=== PATIENT | male | born 1935 | race Caucasian/White ===

== ENCOUNTER 2019-12-16 11:02 | Inpatient (IN) ==
[2019-12-16] MEDS ORDERED: NS 1,000 ML IV ONE (11:17)
--- NOTE | 2019-12-16 11:45 | Diag Imaging Result Doc PS360 ---
EXAM: CHEST-1 VIEW INDICATION: ams TECHNIQUE: One view COMPARISON: 06/04/2018 FINDINGS: Inspiration is suboptimal. The central vasculature is perhaps mildly increased suggesting mild pulmonary venous congestion. The lungs are grossly clear, otherwise. There is stable elevation of the right hemidiaphragm. There is no discrete pleural fluid collection or pneumothorax. There are stable CABG changes and there is cardiomegaly. IMPRESSION: Cardiomegaly and suggestion of mild pulmonary venous congestion. Electronically signed by Tanner Rico 12/16/2019 11:43 AM
--- NOTE | 2019-12-16 11:47 | Diag Imaging Result Doc PS360 ---
EXAM: CT HEAD W/O CONTRAST INDICATION: ams TECHNIQUE: This exam was performed using automated exposure control, adjustment of mA or kV according to patient size, and/or use of iterative reconstruction technique. COMPARISON: 06/04/2018 FINDINGS: There is stable age-appropriate diffuse brain atrophy. There is no definite acute infarct given the limited sensitivity of CT versus MRI. There is no discrete intracranial mass, mass effect, or intracranial hemorrhage. There are stable bilateral maxillary sinus mucus retention cyst. The surrounding soft tissues and bony structures are essentially unremarkable, otherwise. IMPRESSION: Stable mild brain atrophy. No evidence of acute intracranial pathology by CT. Electronically signed by Tanner Rico 12/16/2019 11:45 AM
[2019-12-16 12:22] LABS: URINE SOURCE CATH
[2019-12-16] MEDS ORDERED: ROCEPHIN 1 GM in NS 50 ML IV ONE (12:27)
[2019-12-16 12:28] LABS: BILIRUBIN URINE NEGATIVE (NEGATIVE); BLOOD URINE MODERATE (NEGATIVE); COLOR YELLOW; GLUCOSE URINE NEGATIVE (NEGATIVE); KETONE URINE TRACE mg/dL (NEGATIVE); LEUKOCYTES URINE LARGE (NEGATIVE); NITRITE URINE POSITIVE (NEGATIVE); PH URINE 8.5; PROTEIN URINE 300 mg/dL (NEGATIVE); TURBIDITY URINE TURBID (CLEAR); UROBILINOGEN URINE NORMAL (NORMAL)
[2019-12-16] MEDS ORDERED: POLYTRIM OPH SOLUTION RIGHT EYE ONE (12:28)
[2019-12-16 12:34] LABS: UR EPITHELIAL CELLS <10 /HPF (<10); URINE BACTERIA 4+ /HPF; URINE CRYSTALS TRIPLE PHOS PRESENT; URINE RBC TNTC /HPF (<10); URINE WBC TNTC /HPF (<10); URINE YEAST NONE SEEN
[2019-12-16 15:02] LABS: INR 1.18; PROTIME 15.2 Seconds (11.0-16.0)
[2019-12-16 15:03] LABS: PTT 34.5 Seconds (22.3-41.8)
[2019-12-16 15:08] LABS: BASO# 0.01 X1000 (0.0-0.2); BASO% 0.1 % (0.0-0.8); EOS# 0.01 X1000 (0.0-0.7); EOS% 0.1 % (0.0-10.0); HEMATOCRIT 40.3 % (42.0-52.0); IMM GRAN# 0.02 X1000 (0.0-0.04); IMM GRAN% 0.2 % (0.0-0.5); LYMPH# 0.89 X1000 (1.2-3.4); LYMPH% 7.6 % (20.5-51.1); MCH 29.2 PG (27-31); MCHC 32.3 g/dL (33-37); MCV 90.6 FL (81-99); MONO# 0.58 X1000 (0.11-0.59); MONO% 4.9 % (1.7-9.3); MPV 12.8 FL (7.4-10.4); NEUT# 10.22 X1000 (1.4-6.5); NEUT% 87.1 % (42.2-75.2); PLT 116 X1000 (130-400); RBC 4.45 XMIL (4.7-6.1); RDW 13.7 % (11.5-14.5); WBC 11.73 X1000 (4.8-10.8)
[2019-12-16 15:17] LABS: ALB/GLOB RATIO 2.1; ALBUMIN 4.2 g/dL (3.5-5.0); CREATININE 1.5 mg/dL (0.7-1.2); DIRECT BILIRUBIN 0.2 mg/dL (0.00-0.20); POTASSIUM 4.1 mmol/L (3.5-5.1); TOTAL BILIRUBIN 0.63 mg/dL (0.20-1.00); TOTAL PROTEIN 6.2 g/dL (6.3-8.3)
--- NOTE | 2019-12-16 16:42 | HISTORY AND PHYSICAL ---
PRIMARY CARE PHYSICIAN: Dr. Denise Montesinos. CHIEF COMPLAINT: Was found outside sitting in a truck with nothing but wet socks, full brief, and a thin white T-shirt on by his neighbor who called EMS. HISTORY OF PRESENTING ILLNESS: This is an 84-year-old male who presents to [facility] via EMS after he was seen by his neighbor sitting in a truck that did not run. When the neighbor went over he had on nothing but wet socks, a full brief, and a thin white T-shirt. He had apparently also been riding around in his golf cart most of the night. It is noted that he was hallucinating, wanting to speak to the [employer] man that was not there, and was agitated, but cooperative with EMS. It is noted that his is currently in rehab at [facility], so he has been at home alone. He is alert and oriented to person only. His workup showed a urinalysis with positive nitrites, large leukocytes, 4+ bacteria. CT of the head showed stable mild brain atrophy, but no evidence of acute intracranial pathology. Chest x-ray showed cardiomegaly and suggestion of mild pulmonary venous congestion. So he will be admitted for further evaluation and treatment. PAST MEDICAL HISTORY: Hypertension, hyperlipidemia, diabetes type 2, a DVT, and chronic kidney disease stage III. PAST SURGICAL HISTORY: CABG. FAMILY HISTORY: Reviewed and noncontributory. SOCIAL HISTORY: He was at home alone due to his being in rehabilitation, but normally lives with his spouse. Denies any tobacco, alcohol, or illicit drug use. ALLERGIES: He has no known drug allergies. HOME MEDICATIONS: A current list will need to be obtained, reconciled, reviewed, and restarted as appropriate. We will place an order for nursing to update and confirm home medications. LABORATORY DATA: Showed a white blood cell count of 11.73, hemoglobin 13, hematocrit 40.3, platelets 116,000. PT and INR of 15.2 and 1.18. Sodium 141, potassium 4.1, chloride 103, CO2 of 26, BUN of 39, creatinine 1.5, glucose 126. Cardiac enzyme was negative. Plasma lactate showed 1. Urinalysis showed positive nitrites, large leukocytes, 4+ bacteria. Head CT showed stable mild brain atrophy and no evidence of acute intracranial pathology. Chest x-ray showed cardiomegaly and suggestion of mild pulmonary venous congestion. REVIEW OF SYSTEMS: Unable to obtain from the patient due to his confusion. PHYSICAL EXAMINATION: VITAL SIGNS: On arrival he had a temperature of 97.9 degrees, pulse 60, respirations 20, blood pressure 168/58, saturating 98% on room air. GENERAL: This is an 84-year-old male lying in the bed unable to answer all questions appropriately. He is alert and oriented to person only. HEENMT: Normocephalic, atraumatic. Normal ENT inspection. Oropharynx and nares are clear. Eyes: His right eye was noted to have some crusting, but pupils are equal, round, and reactive to light. Extraocular movements are intact. NECK: Normal inspection. Normal range of motion. LUNGS: Clear to auscultation bilaterally with equal lung expansion and chest wall movement. HEART: Regular rate and rhythm. No murmurs, rubs, or gallops. He does have 3+ edema to his right lower extremity and 1+ to his left lower extremity. ABDOMEN: Soft, nontender, nondistended. Bowel sounds are present x4 quadrants. MUSCULOSKELETAL: He had 3/5 strength x4 extremities. NEUROLOGICAL: Cranial nerves II through XII appear grossly intact. ASSESSMENT: 1. Altered mental status. 2. Urinary tract infection. 3. Diabetes type 2. 4. Hypertension. 5. Chronic kidney disease stage III. PLAN: He will be admitted to the medical unit. Placed on telemetry. Placed on a diabetic diet. Pattern blood sugars with sliding scale insulin. We will do some gentle hydration of normal saline at [address] on Rocephin 1 gram IV q. 24. Urine culture is pending. We will need to update and confirm home medications. Recheck a CBC and BMP in the a.m. and a PT with INR. Further orders after seen by attending. Dictated by TRIXIE Ayoub for Ihsan Sanches MD cc: TRIXIE Ayoub MD Lindsay Smith
--- NOTE | 2019-12-16 17:30 | PROGRESS NOTE ---
DATE: 12/16/2019 Briefly, this is an 84-year-old gentleman who was found confused in his truck in his underwear and socks wet. He is disheveled. He is confused as to where he is. He has been hallucinating. He is describing his was in the half-way, so he has not been really able to take care of himself apparently. He does have a UTI. He does kind of smell of urine like he has been incontinent. There is nothing focal to suggest stroke. He has a minimal white count, but he has gross pyuria. He has a nonfocal examination. Nonpitting edema. We will admit him for hydration and see how he does. Treat his UTI and see how he does. cc: Ihsan Sanches MD
[2019-12-16] MEDS ORDERED: TYLENOL PO PRN (18:11)
[2019-12-16] MEDS ORDERED: ZOFRAN IV PRN (18:11)
[2019-12-16] MEDS ORDERED: LOVENOX SUBQ SCH (18:11)
[2019-12-16] MEDS: NS 1,000 ML IV SCH (19:06)
[2019-12-16] MEDS: HUMALOG SUBQ SCH (20:49)
--- NOTE | 2019-12-16 22:07 | PROVIDER DOCUMENTATION ---
This chart was entered by Nini Rowan Scribe, acting as scribe for Gama Holland MD. HPI-General Adult - General Stated Complaint: AMS Time Seen by Provider: 12/16/19 11:09 Source: patient, EMS ([facility]) Allergies/Adverse Reactions: Patient Allergies Allergy/AdvReac Type Severity Reaction Status Date / Time No Known Allergies Allergy Verified 12/16/19 12:04 Home Medications: Home Medication List Medication Instructions Recorded Confirmed Last Taken Type Furosemide [Lasix] 20 mg PO BID 08/07/14 12/16/19 12/15/19 21:00 History Metoprolol Succinate E.r. [Toprol 50 mg PO DAILY 08/07/14 12/16/19 12/15/19 09:00 History Xl] Cyanocobalamin/Folic AC/Vit B6 1 each PO BID 11/19/14 12/16/19 12/15/19 21:00 History [Folbee Tablet] Glimepiride 2 mg PO BID 11/19/14 12/16/19 12/15/19 21:00 History Insulin Glargine,Hum.rec.anlog 10 unit SQ HS 11/19/14 02/10/18 12/15/19 21:00 History [Lantus Solostar] Insulin Glargine,Hum.rec.anlog 14 unit SQ QAM 11/19/14 12/16/19 12/15/19 08:00 History [Lantus Solostar] Potassium Chloride 10 meq PO DAILY 07/06/16 12/16/19 12/15/19 08:00 History ATORVAstatin [Lipitor] 40 mg PO QHS #90 tab 02/12/18 12/15/19 21:00 Rx Amlodipine [Norvasc] 5 mg PO BID #60 tab 02/12/18 12/16/19 12/15/19 21:00 Rx Aspirin 81 mg PO DAILY chewtab 02/12/18 12/15/19 08:00 Rx Apixaban [Eliquis] 2.5 mg PO BID 12/16/19 12/16/19 12/15/19 21:00 History Carvedilol [Coreg] 3.125 mg PO BID 12/16/19 12/16/19 12/15/19 21:00 History Quetiapine Fumarate 12.5 mg PO HS 12/16/19 12/16/19 12/15/19 21:00 History Sertraline HCl 100 mg PO DAILY 12/16/19 12/16/19 12/15/19 08:00 History - History of Present Illness -Gen Adult Nature of Presenting Problems: 84 yowm presents to the ed via ems ([facility]) after being seen by his neighbor this am sitting in a truck that doesn't run. per ems pt had been outside most of the night in a golf cart riding around and then found in the truck this am in nothing but wet socks, soiled briefs and a thin white tshirt. ems reports when they aos pt was hallucinating wanting to go speak to the [employer] man that was not there. pt was agitated but cooperative with ems.pt has a but she is currently in rehab so pt has been living alone. pt has hx of DM and CVA from ems recoords. Location of Pain/Injury: reports: none Pain Radiation: reports: no radiation Quality of Pain: reports: none Onset/Duration: reports: unsure (possible last night per ems) Timing: reports: still present Context/Activities at Onset: reports: light activity Modifying Factors: improves with: nothing Associated Symptoms: reports: genitourinary problems (incontinence of urine and feces) Similar Symptoms Previously?: No Recently seen or treated by another doctor?: No Review of Systems - Adult - REVIEW OF SYSTEMS - ADULT ROS:: limited per condition Constitutional: reports: see HPI, chills. denies: fever Eyes: reports: no symptoms reported Ears, Nose, Mouth & Throat: reports: no symptoms reported Cardiovascular: denies: chest pain, palpitations Respiratory: denies: shortness of breath, wheezing Gastrointestinal: denies: abdominal pain, constipation, diarrhea, nausea, vomiting Genitourinary: reports: see HPI, incontinence Musculoskeletal: reports: no symptoms reported Integumentary: reports: no symptoms reported Neurological: reports: see HPI, other (confusion). denies: dizziness/vertigo, headache/migraines Psychiatric: reports: no symptoms reported Endocrine: reports: no symptoms reported Hematologic/Lymphatic: reports: no symptoms reported Allergic/Immunologic: reports: no symptoms reported All Other Systems: Reviewed and Negative Past History - Adult - PAST MEDICAL HISTORY-ADULT Review of Records: reports: Old Records Reviewed, Nursing Assessment Review, Medications Reviewed, Social history reviewed & non-contributory. Major Childhood Illnesses: reports: denies history Cardiovascular: reports: HTN, hyperlipidemia Respiratory: reports: denies history Gastrointestinal: reports: denies history Genitourinary: reports: denies history Musculoskeletal: reports: denies history Neurological: reports: denies history Psychiatric: reports: denies history Endocrine/Immune: reports: Diabetes Diabetes Type: Type 2 Diabetes controlled by:: PO Meds Other Conditions: reports: denies history, other (dvt) - PRIOR SURGERIES/PROCEDURES Surgical/Procedure History: reports: CABG - IMMUNIZATION STATUS Childhood Immunizations: See Nurse Assessment Flu Vaccine: See Nurse Assessment - FAMILY HISTORY Family History: reviewed, not pertinent - SOCIAL HISTORY Smoking: denies Substance Use: denies Living Situation: family (but is currently in rehab so pt is alone) Physical Exam-General - PHYSICAL EXAM-ADULT Initial Vital Signs Reviewed: Yes - CONSTITUTIONAL General Appearance: appears well, alert, no apparent distress (nontoxic in appearance), obese, other (pt is in wet socks and soiled briefs with a thin tshirt on. pt was found outside in this attire in a truck that doesnt run on his property. crow) - EYES Eyes: PERRL/EOMI - HEAD, EARS, NOSE, MOUTH & THROAT HENMT: moist mucous membranes - NECK Neck: normal inspection - RESPIRATORY Respiratory: chest non-tender, lungs clear, normal breath sounds - CARDIOVASCULAR Cardiovascular: normal peripheral pulses, bradycardia - CHEST (BREASTS) Chest/Breast: deferred - GASTROINTESTINAL (ABDOMEN) Abdominal Exam: normal bowel sounds, non tender, soft - GENITOURINARY Male Genitalia: deferred Rectal Exam: deferred Hemoccult Exam: deferred - MUSCULOSKELETAL Back Exam: no CVA tenderness, no vertebral tenderness Extremity: normal range of motion, normal inspection, normal capillary refill - SKIN Integumentary: normal color, normal turgor, warm/dry - NEUROLOGIC Neurologic: grossly normal - PSYCHIATRIC Psych/Mental Status: normal mood/affect, normal thought content, normal thought process. negative: oriented x 3 (A/o x2 person and place confused of date) Progress - PLAN OF CARE/RESULTS Result Diagrams: 12/16/19 13:50 12/16/19 13:50 - REASSESSMENT Reassessment #2 Status: unchanged (pateind same, no compliant son at bedside, urine shows UTI, ordered abs, awating labs.) Reassessment #3 Status: unchanged (pateint with AMS, deconditioning and UTI will admit iv abx and further evaluation) - EKG 1 Time of EKG reading by physician:: 11:21 EKG Read and Signed by:: Gama Holland EKG Interpretation (*Must complete 3 of following elements*): Abnormal Rate: 58 Rhythm: sinus bradycardia [place]: normal QRS: RBB RI Interval: normal ST Wave: normal - XRAY 1 XRAY Study: Chest Impression: Abnormal (EXAM: CHEST-1 VIEW INDICATION: ams TECHNIQUE: One view COMPARISON: 06/04/2018 FINDINGS: Inspiration is suboptimal. The central vasculature is perhaps mildly increased suggesting mild pulmonary venous congestion. The lungs are grossly clear, otherwise. There is stable elevation of the right hemidiaphragm. There is no discrete pleural fluid collection or pneumothorax. There are stable CABG changes and there is cardiomegaly. IMPRESSION: Cardiomegaly and suggestion of mild pulmonary venous congestion. Electronically signed by Tanner Rico 12/16/2019 11:43 AM) - CT/MRI 1 CT Study: Head Impression: Normal (EXAM: CT HEAD W/O CONTRAST INDICATION: ams TECHNIQUE: This exam was performed using automated exposure control, adjustment of mA or kV according to patient size, and/or use of iterative reconstruction technique. COMPARISON: 06/04/2018 FINDINGS: There is stable age-appropriate diffuse brain atrophy. There is no definite acute infarct given the limited sensitivity of CT versus MRI. There is no discrete intracranial mass, mass effect, or intracranial hemorrhage. There are stable bilateral maxillary sinus mucus retention cyst. The surrounding soft tissues and bony structures are essentially unremarkable, otherwise. IMPRESSION: Stable mild brain atrophy. No evidence of acute intracranial pathology by CT. Electronically signed by Tanner Rico 12/16/2019 11:45 AM) - CONSULTS/PCP/HOSPITALIST Notification #1 *Consult/PCP/Hospitalist*: hospitalist dr robles Time Discussed: 15:48 (spoke with Tahira) Consult Disposition: Will see in ED, Admit Departure - Departure Date of Disposition Decision: 12/16/19 Time of Disposition Decision: 15:41 DIAGNOSIS: AMS (altered mental status) Qualifiers: Altered mental status type: disorientation Qualified Code(s): R41.0 - Disorientation, unspecified UTI (urinary tract infection) Qualifiers: Urinary tract infection type: site unspecified Hematuria presence: with hematuria Qualified Code(s): N39.0 - Urinary tract infection, site not specified; R31.9 - Hematuria, unspecified Disposition: ADMITTED INPATIENT 09 [facility] Medical Emergency: Emergent Condition: Stable - Critical Care Note This patient required my direct & personal management of CC.: No Attestation - Physician/ RIK Attestation Patient care was provided by Advanced Practice Provider:: No The physician spent face to face time with patient:: Yes Advanced Practice Provider documentation review:: Supervising physician onsite and consulted in the evaluation and care of this patient. The physician did have a face to face encounter with the patient. This chart was documented by the indicated scribe, (Nini Rowan Scribe) and accurately reflects the services I performed and decisions made by me, Gama Holland MD, as attested by the provider's signature.
[2019-12-17] MEDS ORDERED: CALMOSEPTINE OINTMENT TOP PRN (01:49)
[2019-12-17] MEDS: COREG PO SCH ×3 (02:10→20:10)
[2019-12-17] MEDS: HUMALOG SUBQ SCH ×3 (06:48→16:46)
--- NOTE | 2019-12-17 07:11 | EKG Report ---
Test Performed on : 12/16/2019 11:21:10 AM Test Reason : ED. NO EKG ORDER FOR MUSE Blood Pressure : / mmHG Vent. Rate : 058 BPM Atrial Rate : 058 BPM P-R Int : 158 ms QRS Dur : 140 ms QT Int : 492 ms P-R-T Axes : 050 -03 058 degrees QTc Int : 482 ms Sinus bradycardia. Right bundle branch block Cannot rule out Inferior infarct (cited on or before 10-FEB-2018) Abnormal ECG When compared with ECG of 04-JUN-2018 20:11, Right bundle branch block has replaced Incomplete right bundle branch block Unconfirmed Result
[2019-12-17 07:51] LABS: BASO# 0.01 X1000 (0.0-0.2); BASO% 0.1 % (0.0-0.8); EOS# 0.23 X1000 (0.0-0.7); EOS% 2.5 % (0.0-10.0); HEMATOCRIT 37.2 % (42.0-52.0); IMM GRAN# 0.02 X1000 (0.0-0.04); IMM GRAN% 0.2 % (0.0-0.5); LYMPH# 0.94 X1000 (1.2-3.4); LYMPH% 10.4 % (20.5-51.1); MCH 29.3 PG (27-31); MCHC 32.3 g/dL (33-37); MCV 90.7 FL (81-99); MONO# 0.63 X1000 (0.11-0.59); MONO% 6.9 % (1.7-9.3); MPV 12.1 FL (7.4-10.4); NEUT# 7.25 X1000 (1.4-6.5); NEUT% 79.9 % (42.2-75.2); PLT 117 X1000 (130-400); RDW 13.5 % (11.5-14.5); WBC 9.08 X1000 (4.8-10.8)
[2019-12-17 07:57] LABS: INR 1.24; PROTIME 15.8 Seconds (11.0-16.0)
[2019-12-17 08:18] LABS: CALCIUM 8.5 mg/dL (8.8-10.2); CREATININE 1.3 mg/dL (0.7-1.2); POTASSIUM 4.1 mmol/L (3.5-5.1)
[2019-12-17] MEDS: NS 1,000 ML IV SCH (10:24)
[2019-12-17] MEDS: ROCEPHIN 1 GM in NS 50 ML IV SCH (11:33)
--- NOTE | 2019-12-17 16:23 | PROGRESS NOTE ---
DATE: 12/17/2019 SUBJECTIVE: The patient is very confused. I am really not entirely sure how far off baseline he is, but his has been in rehab. I get a sense she probably took care of him, and without that presence at home, it has caused some significant confusion although he does have a urinary tract infection. OBJECTIVE: Blood pressure 151/70, heart rate 62, respiratory rate 18, temperature 98.6 degrees, and 96% on room air.Cardiovascular: Regular rate and rhythm. Pulmonary: Bilateral breath sounds. Clear to auscultation. GI: Soft. Nontender and nondistended. Bowel sounds are positive. LABORATORY DATA: White count is 9, hemoglobin and hematocrit 12 and 37, platelets of 117,000, and creatinine is 1.3. PROBLEM LIST: 1. Encephalopathy. I am pretty sure he probably has some underlying dementia. He is on several medications for that, Seroquel and Zoloft. In any case, we will continue to monitor. I do think this may be some delirium on top of underlying dementia but we will continue to follow. 2. Urinary tract infection. He does have a gram-negative martin urinary tract infection. We will continue to monitor. 3. I believe he has a history of atrial fibrillation. This appears to be stable. He is on apixaban and has regular medication. 4. Chronic renal failure. Again, he is at baseline. 5. Type 2 diabetes. Continue to follow blood sugars. Those are actually fairly well controlled. We will check an A1c, and follow. DISPOSITION: We will get PT to evaluate, but he may need a Tata psych if his mental status is not much improved. cc: Ihsan Sanches MD
[2019-12-17] MEDS: AMARYL PO SCH (16:46)
[2019-12-17] MEDS: LASIX PO SCH (20:10)
[2019-12-17] MEDS: NORVASC PO SCH (20:10)
[2019-12-17] MEDS: ELIQUIS PO SCH (20:10)
[2019-12-17] MEDS: FOLTX PO SCH (20:10)
[2019-12-17] MEDS: SEROQUEL PO SCH (20:10)
[2019-12-17] MEDS ORDERED: COREG PO SCH (21:00)
[2019-12-18] MEDS: HUMALOG SUBQ SCH ×5 (00:02→20:45)
[2019-12-18 07:23] LABS: BASO# 0.01 X1000 (0.0-0.2); BASO% 0.1 % (0.0-0.8); EOS# 0.29 X1000 (0.0-0.7); EOS% 3.2 % (0.0-10.0); HEMATOCRIT 36.3 % (42.0-52.0); HEMOGLOBIN 11.6 g/dL (14.0-18.0); LYMPH# 1.25 X1000 (1.2-3.4); LYMPH% 13.7 % (20.5-51.1); MCH 28.9 PG (27-31); MCV 90.3 FL (81-99); MONO# 0.95 X1000 (0.11-0.59); MONO% 10.4 % (1.7-9.3); MPV 12.6 FL (7.4-10.4); NEUT# 6.63 X1000 (1.4-6.5); NEUT% 72.6 % (42.2-75.2); PLT 112 X1000 (130-400); RBC 4.02 XMIL (4.7-6.1); RDW 13.4 % (11.5-14.5); WBC 9.13 X1000 (4.8-10.8)
[2019-12-18 07:38] LABS: HEMOGLOBIN A1C 7.2 % (4.8-6.0)
[2019-12-18 07:43] LABS: CREATININE 1.4 mg/dL (0.7-1.2); POTASSIUM 3.7 mmol/L (3.5-5.1)
[2019-12-18] MEDS: KLOR-CON PO SCH (08:20)
[2019-12-18] MEDS: ELIQUIS PO SCH ×2 (08:20→20:44)
[2019-12-18] MEDS: AMARYL PO SCH ×2 (08:20→16:11)
[2019-12-18] MEDS: FOLTX PO SCH ×2 (08:20→20:43)
[2019-12-18] MEDS: TOPROL XL PO SCH (08:20)
[2019-12-18] MEDS: NORVASC PO SCH ×2 (08:21→20:44)
[2019-12-18] MEDS: ZOLOFT PO SCH (08:21)
[2019-12-18] MEDS: LASIX PO SCH ×2 (08:21→20:44)
[2019-12-18] MEDS: LANTUS INSULIN SUBQ SCH (08:21)
[2019-12-18] MEDS: COREG PO SCH ×2 (08:21→20:44)
[2019-12-18 08:27] LABS: INR 1.22; PROTIME 15.6 Seconds (11.0-16.0)
[2019-12-18] MEDS: ROCEPHIN 1 GM in NS 50 ML IV SCH (11:54)
--- NOTE | 2019-12-18 16:49 | PROGRESS NOTE ---
DATE: 12/18/2019 SUBJECTIVE: Patient has no major complaints. OBJECTIVE: Vital Signs: Blood pressure is 143/64, heart rate of 55, respiratory rate is 16, temperature was 98.6 degrees. Cardiovascular: Regular rate and rhythm. Pulmonary: Bilateral breath sounds clear to auscultation. GI: Soft, nontender, nondistended. Bowel sounds are positive. LABORATORY DATA: White count 9, hemoglobin and hematocrit 11 and 36, platelets 112,000. Creatinine 1.4. Micro shows Proteus mirabilis which is sensitive to everything except Macrobid. ASSESSMENT: 1. Encephalopathy, possibly delirium, dementia. He seems to be doing a little bit better today. I am still going to have [facility] screen him for [facility] psych, so he is medically stable. 2. Proteus urinary tract infection. He is on Rocephin. We can transition to Keflex. 3. Atrial fibrillation. He is stable on current medications. We have been checking PT/INR for some reason. He is on apixaban. We do not need to be doing that anymore. 4. Type 2 diabetes. DISPOSITION: I think he is ready for discharge. We will see how things look and go from there. cc: Ihsan Sanches MD
[2019-12-18] MEDS: SEROQUEL PO SCH (20:43)
[2019-12-19] MEDS: HUMALOG SUBQ SCH ×3 (06:32→19:48)
[2019-12-19] MEDS: FOLTX PO SCH (08:55)
[2019-12-19] MEDS: AMARYL PO SCH ×2 (08:55→18:40)
[2019-12-19] MEDS: ZOLOFT PO SCH (08:55)
[2019-12-19] MEDS: NORVASC PO SCH (08:55)
[2019-12-19] MEDS: KLOR-CON PO SCH (08:55)
[2019-12-19] MEDS: TOPROL XL PO SCH (08:55)
[2019-12-19] MEDS: COREG PO SCH (08:55)
[2019-12-19] MEDS: LASIX PO SCH (08:55)
[2019-12-19] MEDS: ELIQUIS PO SCH (08:55)
[2019-12-19] MEDS: LANTUS INSULIN SUBQ SCH (12:33)
[2019-12-19] MEDS: ROCEPHIN 1 GM in NS 50 ML IV SCH (12:33)
--- NOTE | 2019-12-19 19:01 | PROGRESS NOTE ---
DATE: 12/19/2019 SUBJECTIVE: Patient has no major complaints. OBJECTIVE: Vital signs: Blood pressure 165/73, heart rate 61, respiratory rate 18, temperature 98.2 degrees, 96% on room air. Cardiovascular: Regular rate and rhythm. Pulmonary: Bilateral breath sounds, clear to auscultation. GI: Soft, nontender, nondistended. Bowel sounds are positive. Workup is otherwise negative. ASSESSMENT AND PLAN: 1. Encephalopathy, dementia. He seems to be better. He is not a candidate for Tata-Psych, so we will continue to follow. 2. Proteus urinary tract infection. He is on Rocephin. We are going to continue transition to Keflex. 3. Atrial fibrillation. He seems to be stable. Continue regular medications. 4. Type 2 diabetes. We will continue his regular medications and follow. DISPOSITION: We think he is probably going to be ready for home PT. We will anticipate doing that tomorrow. cc: Ihsan Sanches MD
[2019-12-20] MEDS: ELIQUIS PO SCH ×3 (00:04→20:29)
[2019-12-20] MEDS: HUMALOG SUBQ SCH ×5 (00:04→20:31)
[2019-12-20] MEDS: FOLTX PO SCH ×3 (00:04→20:29)
[2019-12-20] MEDS: LASIX PO SCH ×3 (00:04→20:28)
[2019-12-20] MEDS: NORVASC PO SCH ×3 (00:04→20:28)
[2019-12-20] MEDS: COREG PO SCH ×3 (00:04→20:29)
[2019-12-20] MEDS: SEROQUEL PO SCH ×2 (00:04→20:29)
[2019-12-20] MEDS: ZOLOFT PO SCH (08:51)
[2019-12-20] MEDS: LANTUS INSULIN SUBQ SCH (08:51)
[2019-12-20] MEDS: TOPROL XL PO SCH (08:51)
[2019-12-20] MEDS: AMARYL PO SCH ×2 (08:51→16:38)
[2019-12-20] MEDS: KLOR-CON PO SCH (08:51)
[2019-12-20] MEDS: ROCEPHIN 1 GM in NS 50 ML IV SCH ×2 (13:32→13:51)
--- NOTE | 2019-12-20 13:56 | DISCHARGE SUMMARY ---
ADMISSION DATE: 12/16/2019 DISCHARGE DATE: 12/20/2019 PRIMARY CARE PROVIDER: Marco Kat. PERTINENT PROCEDURES: Head CT: Stable mild brain atrophy. No evidence of acute intracranial pathology. DISCHARGE DIAGNOSES: 1. Encephalopathy, dementia, improved. He is not a candidate for Tata psych. 2. Proteus urinary tract infection on Rocephin. Transition to Keflex. 3. Atrial fibrillation. Stable. Continue home medications. 4. Type 2 diabetes. Continue his home medications. HOSPITAL COURSE: Briefly, Mr. Villanueva is an 84-year-old gentleman with a past medical history of hypertension, hyperlipidemia, type 2 diabetes, DVT, chronic kidney disease stage 3, was brought into the ED when a neighbor went over and he wearing nothing but socks, a brief with a thin white T-shirt. He had been riding around in his golf cart most of the night, was noted to be hallucinating and wanting to speak to the [employer] man about not being there. He was agitated. His is in rehab at [facility]. Initially, he was only alert and oriented to person. Workup with a head CT revealed stable mild brain atrophy, but no evidence of acute intracranial pathology. He was admitted for dementia with encephalopathy. [facility] screen him for Tata psych after he was medically stable. However, he did not meet criteria. He was also found to have a urinary tract infection for which he was started on Rocephin and transitioned to Keflex. He will be discharged home today and to continue with physical therapy. VITAL SIGNS: At time of discharge, temperature is 97.4 degrees axillary, heart rate 81, respirations 19, blood pressure 158/60, O2 is 98% on room air general Mr. Villanueva is being discharged at this time. He will continue with physical therapy. He is take all medications as prescribed. He can return to the ED or call 911 for any worsening of symptoms. HOME MEDICATIONS: 1. Eliquis 2.5 mg p.o. b.i.d. 2. Folbee 1 inch p.o. b.i.d. 3. Glyburide 2 mg p.o. b.i.d. 4. Lantus 14 units subcutaneous q.a.m. 5. Lasix 20 mg p.o. b.i.d. 6. Potassium 10 mEq p.o. daily. 7. Seroquel 12.5 mg p.o. at bedtime. 8. Zoloft 100 mg p.o. daily. 9. Lipitor 40 mg p.o. at bedtime. 10. Aspirin 81 mg p.o. daily. 11. Coreg 6.25 mg p.o. b.i.d. 12. Keflex 500 mg p.o. b.i.d. x14 tablets. 13. Norvasc 5 mg p.o. b.i.d.. Dictated by TRIXIE Curran for Ihsan Sanches MD cc: Ihsan Sanches MD
[2019-12-20] MEDS ORDERED: TOPROL XL PO SCH (16:45)
--- NOTE | 2019-12-20 17:01 | PROGRESS NOTE ---
DATE: 12/20/2019 SUBJECTIVE: Patient has no complaints. OBJECTIVE: Vital signs: Blood pressure is 132/55, heart rate of 104, respiratory rate of 19, temperature 97.4 degrees. Cardiovascular: Regular rate and rhythm. Pulmonary: Bilateral breath sounds. Clear to auscultation. GI: Soft, nontender, nondistended. Bowel sounds are positive. PROBLEM LIST: 1. Proteus urinary tract infection. We will switch him to Keflex and follow. 2. Encephalopathy. We will continue to monitor. He seems to be doing better. 3. Atrial fibrillation. He has been on Coreg and Toprol previously. I am going to increase his Coreg because he is a little tachycardic. DISPOSITION: We are looking at SNF placement. There may be a COVID exposure, but the other patient I think was relatively low chance he is COVID. I am waiting on his tests before we pursue test for this patient because he is asymptomatic and the exposure is only theoretical at this point. We will continue to follow. cc: Ihsan Sanches MD
[2019-12-20] MEDS: KEFLEX PO SCH (20:28)
[2019-12-21] MEDS: HUMALOG SUBQ SCH ×2 (06:40→11:13)
[2019-12-21 07:11] LABS: BASO# 0.02 X1000 (0.0-0.2); BASO% 0.2 % (0.0-0.8); EOS# 0.78 X1000 (0.0-0.7); EOS% 8.7 % (0.0-10.0); HEMATOCRIT 38.3 % (42.0-52.0); HEMOGLOBIN 12.4 g/dL (14.0-18.0); IMM GRAN# 0.02 X1000 (0.0-0.04); IMM GRAN% 0.2 % (0.0-0.5); LYMPH# 1.58 X1000 (1.2-3.4); LYMPH% 17.6 % (20.5-51.1); MCH 29.2 PG (27-31); MCHC 32.4 g/dL (33-37); MCV 90.1 FL (81-99); MONO# 0.65 X1000 (0.11-0.59); MONO% 7.2 % (1.7-9.3); MPV 11.4 FL (7.4-10.4); NEUT# 5.95 X1000 (1.4-6.5); NEUT% 66.1 % (42.2-75.2); PLT 150 X1000 (130-400); RBC 4.25 XMIL (4.7-6.1); RDW 13.4 % (11.5-14.5)
[2019-12-21 07:27] LABS: CALCIUM 8.3 mg/dL (8.8-10.2); CREATININE 1.4 mg/dL (0.7-1.2); POTASSIUM 3.9 mmol/L (3.5-5.1)
[2019-12-21] MEDS: KLOR-CON PO SCH (09:14)
[2019-12-21] MEDS: KEFLEX PO SCH (09:14)
[2019-12-21] MEDS: COREG PO SCH ×2 (09:14→09:17)
[2019-12-21] MEDS: FOLTX PO SCH (09:14)
[2019-12-21] MEDS: ELIQUIS PO SCH (09:14)
[2019-12-21] MEDS: NORVASC PO SCH (09:14)
[2019-12-21] MEDS: ZOLOFT PO SCH (09:14)
[2019-12-21] MEDS: AMARYL PO SCH (09:14)
[2019-12-21] MEDS: LASIX PO SCH (09:14)
[2019-12-21] MEDS: LANTUS INSULIN SUBQ SCH (09:17)
[2019-12-21 11:23] VITALS: BP 150/61
--- NOTE | 2019-12-21 13:22 | DISCHARGE SUMMARY ---
ADMISSION DATE: 12/16/2019 DISCHARGE DATE: 12/21/2019 DISCHARGE SUMMARY ADDENDUM: The patient is discharged initially planned for yesterday, but held because of potential exposure. The patient that he was potentially exposed to ended up having aspiration pneumonia that improved rapidly with antibiotics and has now been discharged home. Patient himself has no respiratory issues whatsoever. The patient otherwise looks well. Fully oriented this morning which is an improvement. He has not required any insulin since he has been here and actually had some mild hypoglycemia on his home Amaryl, so both of those have been discontinued. I suspect that his diabetes is largely diet-controlled at this point. If the patient does develop further hyperglycemia needing treatment, I would recommend metformin or other agents that is less likely to give him low blood sugar. TIME SPENT: Greater than 30 minutes spent during discharge and counseling patient. GUERA
== END 2019-12-21 14:32 | DRG 690 ==
LOC: SUPCPDRO → ED 11:02 → EDIPHOLD 18:02 → SUATTDRO 18:02 → 3N 23:44
PROVIDERS: ATTEND Internal Medicine

== ENCOUNTER 2020-01-26 08:32 | Inpatient (IN) ==
--- NOTE | 2020-01-26 09:40 | PROVIDER DOCUMENTATION ---
HPI-Musculoskeletal Pain/Inj - GENERAL Chief Complaint: Fall Stated Complaint: FALL Time Seen by Provider: 01/26/20 08:59 - HX OF PRESENT ILLNESS-MUSKULOSKELTAL Nature of Presenting Problem: 84yowm presents today with c/o left hip pain. Patient does live at [facility]. Patient states that he fell sometime during the night. Patient denies any cough, fever, chills, or flu-like symptoms. Patient is non-toxic in appearance. Quality of Pain: reports: sharp Severity in ED: moderate Onset/Duration: 4-6 hours ago Timing: still present Modifying Factors: improves with: nothing Any recent injury?: Yes Locality of Occurance: Home Similar Symptoms Previously?: No Recently seen or treated by another doctor?: No - FALL INJURY Location of Pain/Injury: reports: pelvis, lower extremity Pain Radiation: reports: no radiation Reason for Fall: reports: tripped Symptoms prior to fall:: reports: none Loss of Consciousness: no loss of consciousness Injury Associated Symptoms: reports: unable to bear weight - HIP/PELVIS PAIN/INJURY Hip Pain Location: reports: hip (L), pelvis Context / Method of Injury: reports: fall - LOWER EXTREMITY PAIN/INJURY Lower Extremities Pain: hip: left Context / Method of Injury: reports: fell Review of Systems - Adult - REVIEW OF SYSTEMS - ADULT Constitutional: reports: no symptoms reported. denies: chills, fever Eyes: reports: no symptoms reported Ears, Nose, Mouth & Throat: reports: no symptoms reported Cardiovascular: reports: no symptoms reported. denies: chest pain Respiratory: reports: no symptoms reported. denies: cough, shortness of breath Gastrointestinal: reports: no symptoms reported. denies: constipation, diarrhea, nausea, vomiting Genitourinary: reports: no symptoms reported Musculoskeletal: reports: muscle weakness (to left lower extremity) Integumentary: reports: no symptoms reported Neurological: reports: no symptoms reported Psychiatric: reports: no symptoms reported Endocrine: reports: no symptoms reported Hematologic/Lymphatic: reports: no symptoms reported Allergic/Immunologic: reports: no symptoms reported All Other Systems: Reviewed and Negative Past History - Adult - PAST MEDICAL HISTORY-ADULT Review of Records: reports: Old Records Reviewed, Nursing Assessment Review, Medications Reviewed, Social history reviewed & non-contributory. Major Childhood Illnesses: reports: denies history Cardiovascular: reports: HTN, hyperlipidemia Respiratory: reports: denies history Gastrointestinal: reports: denies history Obstetrical/Gynecological: reports: denies history Genitourinary: reports: denies history Musculoskeletal: reports: denies history Neurological: reports: denies history Psychiatric: reports: denies history Endocrine/Immune: reports: Diabetes Other Conditions: reports: denies history, other (dvt) - PRIOR SURGERIES/PROCEDURES Surgical/Procedure History: reports: CABG - IMMUNIZATION STATUS Childhood Immunizations: See Nurse Assessment Flu Vaccine: See Nurse Assessment - FAMILY HISTORY Family History: reviewed, not pertinent - SOCIAL HISTORY Smoking: denies Substance Use: denies Living Situation: care facility ([facility]) Physical Exam-Injury Related - Physical Exam-Injury Related Initial Vital Signs Reviewed: Yes General Appearance: appears well, alert, no apparent distress Eyes: PERRL/EOMI, pink conjunctivae Head, Ears, Nose, Mouth & Throat: normocephalic/atraumatic, moist mucous membranes, normal ENT inspection, TMs normal Neck: non-tender, full range of motion, supple, normal inspection Respiratory: chest non-tender, lungs clear, normal breath sounds, no pleuratic chest pain, no respiratory distress, no accessory muscle use Cardiovascular: normal peripheral pulses, no edema, no gallop, systolic murmur, irregularly irregular Chest/Breast: deferred Peripheral Pulses: radial (R): 2+, radial (L): 2+, dorsalis-pedis (R): 2+, dorsalis-pedis (L): 2+ Abdominal Exam: normal bowel sounds, non tender, soft Male Genitalia: deferred Rectal Exam: deferred Extremity: pedal edema, tenderness (left pelvis/hip) Integumentary: normal color, warm/dry, ecchymosis (to left knee), tenderness (to left pelvis) Neurologic: grossly normal Psych/Mental Status: normal mood/affect, normal thought content, normal thought process, oriented x 3 - Glascow Coma Score Best Eye Response ([place]): (4) open spontaneously Best Verbal Response ([place]): (5) oriented Best Motor Response ([place]): (6) obeys commands Progress - PLAN OF CARE/RESULTS Progress/Plan/Lab Results: Vital Signs - 8 hr 01/26/20 08:41 01/26/20 09:33 Temperature 98.1 F Pulse Rate 60 60 Respiratory Rate 16 14 Blood Pressure 120/69 115/63 O2 Sat by Pulse Oximetry 96 97 Laboratory Results - last 24 hr 01/26/20 01/26/20 01/26/20 09:30 09:30 09:30 WBC 15.20 H RBC 4.22 L Hgb 12.1 L Hct 37.5 L MCV 88.9 MCH 28.7 MCHC 32.3 L RDW Std Deviation 13.8 Plt Count 188 MPV 11.1 H Immature Gran % (Auto) 0.3 Neut % (Auto) 87.4 H Lymph % (Auto) 7.5 L [place] % (Auto) 3.9 Eos % (Auto) 0.8 Baso % (Auto) 0.1 Immature Gran # (Auto) 0.05 H Neut # (Auto) 13.28 H Lymph # (Auto) 1.14 L [place] # (Auto) 0.60 H Eos # (Auto) 0.12 Baso # (Auto) 0.01 PT 16.0 INR 1.26 Sodium 140 Potassium 4.6 Chloride 103 Carbon Dioxide 26 Anion Gap 11 BUN 38 H Creatinine 1.7 H Estimated GFR/1.73 m2 39 BUN/Creatinine Ratio 22 Glucose 325 H Calculated Osmolality 301 Calcium 8.8 Total Bilirubin 0.49 AST 21 ALT 31 Alkaline Phosphatase 95 Total Protein 5.9 L Albumin 3.5 Globulin 2.4 Albumin/Globulin Ratio 1.5 Urine Source 01/26/20 11:27 WBC RBC Hgb Hct MCV MCH MCHC RDW Std Deviation Plt Count MPV Immature Gran % (Auto) Neut % (Auto) Lymph % (Auto) [place] % (Auto) Eos % (Auto) Baso % (Auto) Immature Gran # (Auto) Neut # (Auto) Lymph # (Auto) [place] # (Auto) Eos # (Auto) Baso # (Auto) PT INR Sodium Potassium Chloride Carbon Dioxide Anion Gap BUN Creatinine Estimated GFR/1.73 m2 BUN/Creatinine Ratio Glucose Calculated Osmolality Calcium Total Bilirubin AST ALT Alkaline Phosphatase Total Protein Albumin Globulin Albumin/Globulin Ratio Urine Source CATH Orders Category Date Time Status Brown Cath Insertion ORDERED Care 01/26/20 11:31 Active FEMUR MIN 2 VIEWS LEFT [RAD] Stat Exams 01/26/20 09:09 Completed XRAY PELVIS W/HIP 2-3VW LT [RAD] Stat Exams 01/26/20 09:09 Completed CBC WITH DIFF [HEME] Stat Lab 01/26/20 09:30 Completed COMPREHENSIVE METABOLIC PANEL [CHEM] Stat Lab 01/26/20 09:30 Completed PROTIME WITH INR [COAG] Stat Lab 01/26/20 09:30 Completed UA Reflex [URINALYSIS W/POSS RFLX CULT] [URINALYSIS] Lab 01/26/20 11:27 Results Stat Patient agrees with POC rendered today. Result Diagrams: 01/26/20 09:30 01/26/20 09:30 - CONSULTS/PCP/HOSPITALIST Notification #1 *Consult/PCP/Hospitalist*: Dr. Billy Sheehan Time Discussed: 11:41 Consult Disposition: Admit Departure - Departure Date of Disposition Decision: 01/26/20 Time of Disposition Decision: 11:41 DIAGNOSIS: Closed comminuted intertrochanteric fracture of left femur Qualifiers: Encounter type: initial encounter Qualified Code(s): S72.142A - Displaced intertrochanteric fracture of left femur, initial encounter for closed fracture Disposition: ADMITTED INPATIENT 09 Certified Medical Emergency: Emergent Condition: Fair Referrals and Follow-Ups: Denise Montesinos MD [Primary Care Provider] - - Critical Care Note This patient required my direct & personal management of CC.: No Attestation - Physician/ RIK Attestation Patient care was provided by Advanced Practice Provider:: Yes Advanced Practice Provider:: Elma [address] Advanced Practice Provider documentation review:: The Mid-level provider documentation, treatment plan and medical decision making was reviewed by the physician who agrees with all treatment and medical decision making by the MLP. The physician spent face to face time with patient:: Yes Advanced Practice Provider documentation review:: Supervising physician onsite and consulted in the evaluation and care of this patient. The physician did have a face to face encounter with the patient.
[2020-01-26 09:48] LABS: INR 1.26
[2020-01-26 10:18] LABS: ALB/GLOB RATIO 1.5; ALBUMIN 3.5 g/dL (3.5-5.0); CALCIUM 8.8 mg/dL (8.8-10.2); CREATININE 1.7 mg/dL (0.7-1.2); POTASSIUM 4.6 mmol/L (3.5-5.1); TOTAL BILIRUBIN 0.49 mg/dL (0.20-1.00); TOTAL PROTEIN 5.9 g/dL (6.3-8.3)
--- NOTE | 2020-01-26 10:33 | Diag Imaging Result Doc PS360 ---
EXAM: XRAY PELVIS W/HIP 2-3VW LT HISTORY: fall TECHNIQUE: Two views COMPARISON: None. FINDINGS: There is an intertrochanteric fracture to the left hip. Femoral head remains in the acetabulum. Femoral shaft is rotated. The bones are osteopenic. IMPRESSION: Left intertrochanteric fracture Electronically signed by Quentin Pavon 01/26/2020 10:30 AM
[2020-01-26 10:35] LABS: BASO# 0.01 X1000 (0.0-0.2); BASO% 0.1 % (0.0-0.8); EOS# 0.12 X1000 (0.0-0.7); EOS% 0.8 % (0.0-10.0); HEMATOCRIT 37.5 % (42.0-52.0); HEMOGLOBIN 12.1 g/dL (14.0-18.0); IMM GRAN# 0.05 X1000 (0.0-0.04); IMM GRAN% 0.3 % (0.0-0.5); LYMPH# 1.14 X1000 (1.2-3.4); LYMPH% 7.5 % (20.5-51.1); MCH 28.7 PG (27-31); MCHC 32.3 g/dL (33-37); MCV 88.9 FL (81-99); MONO% 3.9 % (1.7-9.3); MPV 11.1 FL (7.4-10.4); NEUT# 13.28 X1000 (1.4-6.5); NEUT% 87.4 % (42.2-75.2); PLT 188 X1000 (130-400); RBC 4.22 XMIL (4.7-6.1); RDW 13.8 % (11.5-14.5)
--- NOTE | 2020-01-26 10:36 | Diag Imaging Result Doc PS360 ---
EXAM: FEMUR MIN 2 VIEWS LEFT HISTORY: fall TECHNIQUE: Three views COMPARISON: None. FINDINGS: There is a fracture to the proximal left femur. The femoral head remains in the acetabulum. The femoral shaft is rotated. The lesser trochanter is displaced medially. Severe atherosclerosis. Orthopedic replacement of the left knee. IMPRESSION: Proximal femoral fracture Electronically signed by Quentin Pavon 01/26/2020 10:33 AM
[2020-01-26 11:34] LABS: URINE SOURCE CATH
[2020-01-26] MEDS ORDERED: ZOFRAN IV PRN (11:42)
[2020-01-26] MEDS ORDERED: TYLENOL PO PRN (11:42)
[2020-01-26 11:44] LABS: BILIRUBIN URINE NEGATIVE (NEGATIVE); BLOOD URINE NEGATIVE (NEGATIVE); COLOR YELLOW; GLUCOSE URINE 200 mg/dL (NEGATIVE); KETONE URINE NEGATIVE (NEGATIVE); LEUKOCYTES URINE NEGATIVE (NEGATIVE); NITRITE URINE NEGATIVE (NEGATIVE); PH URINE 5.5; PROTEIN URINE NEGATIVE (NEGATIVE); SP GRAVITY URINE 1.017; TURBIDITY URINE CLEAR (CLEAR); UROBILINOGEN URINE NORMAL (NORMAL)
[2020-01-26 11:45] LABS: UR EPITHELIAL CELLS <10 /HPF (<10); URINE BACTERIA NEGATIVE /HPF; URINE RBC <10 /HPF (<10); URINE WBC <10 /HPF (<10)
--- NOTE | 2020-01-26 12:45 | Diag Imaging Result Doc PS360 ---
EXAM: CHEST-PORTABLE HISTORY: dyspnea TECHNIQUE: Single view COMPARISON: 12/16/2019 FINDINGS: The lungs are well expanded except for atelectasis in the left base. No contusion. No pneumothorax. The heart is not enlarged. There are sternal wires and surgical clips. The vessels are not distended. There are no infiltrates. No effusion identified. IMPRESSION: Left base atelectasis Electronically signed by Quentin Pavon 01/26/2020 12:42 PM
[2020-01-26] MEDS: MORPHINE IV PRN ×2 (13:56→23:03)
[2020-01-27] MEDS ORDERED: DIPRIVAN 1% ONE (09:02)
[2020-01-27] MEDS ORDERED: KEFZOL 1 GM/D5W 1 GM/50 ML IVPB ONE ×2 (09:42)
[2020-01-27] MEDS ORDERED: XYLOCAINE-MPF 2% ONE (10:42)
[2020-01-27] MEDS ORDERED: ZOFRAN ONE (10:42)
--- NOTE | 2020-01-27 10:48 | CONSULTATION ---
DATE OF CONSULTATION: 01/27/2020 CHIEF COMPLAINT: Status post fall. HISTORY: The patient is an 84-year-old, demented male, who lives at [facility], with complaints of left hip pain. He fell throughout the night and sustained a left hip fracture. Orthopedics was asked in consultation in regards to a left intertrochanteric hip fracture. His history is difficult to obtain due to his mental status. Most of this will be taken from previous notes. PAST MEDICAL HISTORY: Includes hypertension, hyperlipidemia, diabetes. PAST SURGICAL HISTORY: CABG. SOCIAL HISTORY: Denies tobacco, alcohol, or illegal drug use. FAMILY HISTORY: Noncontributory. MEDICATIONS: Please see the chart for his home medications. He was on Eliquis, but this has been held. REVIEW OF SYSTEMS: A 14-point review of systems, which was obtained, was negative, except as above. PHYSICAL EXAMINATION: Vital Signs: Stable. Temperature is 97.6 degrees, pulse rate 72, respiratory rate 18, blood pressure 102/56, O2 saturation 96%. General: The patient is alert, but not oriented, difficult to discuss. I did discuss with his son about proceeding with surgery, and he was willing to do such. HEENT: Pupils are equal, round, reactive to light accommodation. Extraocular movements are intact. No blood in the nares. Head is normocephalic. Neck: Trachea is midline. Supple. Cardiovascular: There is a brisk capillary refill in the peripheral extremities. Lungs: Normal aeration is noted. Neurologic: Cranial nerves II through XII are grossly intact. There are no focal deficits. Sensation is intact distally in all distal dermatomal patterns. Musculoskeletal: The left lower extremity shows a positive log roll. The right lower extremity shows no pain. There is no pain with upper extremity range of motion. IMAGING: X-rays were reviewed of the pelvis and left femur. He does have a total knee implant in the left knee, but there is a left intertrochanteric hip fracture with extension into the lesser. No other distal femur fracture is noted. ASSESSMENT: An 84-year-old male status post fall with left hip pain. Left intertrochanteric hip fracture. PLAN: I had a long discussion with the son in regards to treatment options. He is okay to proceed. I recommend IM nailing of that left hip once he is cleared and ready to go. He will hold his Eliquis. The risks were discussed with the son. He understands and agrees to proceed with that plan. cc: MD Ihsan Anders MD
[2020-01-27] MEDS: HUMULIN R SUBQ SCH ×3 (11:00→22:23)
[2020-01-27] MEDS ORDERED: MORPHINE IV PRN (11:52)
[2020-01-27] MEDS ORDERED: MILK OF MAGNESIA PO PRN (11:52)
[2020-01-27] MEDS ORDERED: ZOFRAN IV PRN (11:52)
[2020-01-27] MEDS ORDERED: HALDOL IV PRN (12:00)
--- NOTE | 2020-01-27 12:12 | OPERATIVE NOTE ---
PROCEDURE DATE: 01/27/2020 PREOPERATIVE DIAGNOSES: 1. Left comminuted intertrochanteric hip fracture. 2. History of left total knee arthroplasty. POSTOPERATIVE DIAGNOSES: 1. Left comminuted intertrochanteric hip fracture. 2. History of left total knee arthroplasty. PROCEDURE PERFORMED: Closed reduction with long intramedullary nailing of the left hip. SURGEON: Billy Sheehan DO. MORTAR MAKER: WILLIAN Mcadams. Debbie was available to help throughout the procedure. She assisted with the dissection, the retraction, placement and fixation of the implant, and closure. She was essential in helping throughout the whole procedure. ANESTHESIA: General endotracheal. ANTIBIOTICS: Two grams of Ancef were given IV preoperatively within 30 minutes of the incision. HISTORY: The patient is an 84-year-old male who sustained a fall while at a nursing facility. The patient is demented. I discussed with him, but also with his son about proceeding with surgery, including the risks associated with it. He understood and agreed to proceed with that plan. IMPLANTS: Include a 420 mm long cephalomedullary nail, there is a 105 mm lag bolt, and a distal locking screw. ESTIMATED BLOOD LOSS: 50 mL. SPECIMENS: None. COMPLICATIONS: None. The patient was sent to PACU in stable condition. DESCRIPTION OF PROCEDURE: The patient was taken back to the operative suite. While in the supine position, general anesthesia was given. The patient was intubated and transferred over to the [place] table, padding all bony prominences. Both legs were placed into the boots and secured to the table. At that time, reduction maneuver was performed. An x-ray was taken to confirm the reduction of the left proximal femur fracture. It was decided at that time to proceed with a long nail. The left hip was prepped using a ChloraPrep, and draped in the normal sterile fashion. I started by making an incision just proximal to the greater trochanter, and placed a K-wire into the proximal aspect of the greater trochanter. This was followed by proximal reaming. Due to the complexity of the fracture and the comminution of the fracture, a reduction tool was used to be able to pass the reaming martin across the fracture site, down into the distal aspect of the femur. X-ray was taken to confirm the positioning of the martin within the canal. It was measured, and measured a 420 mm nail. At that time, I reamed the medullary canal up to a 12 mm, followed by placement of the martin into the medullary canal. A secondary incision was made, followed by placement of a K-wire into the femoral head. This was adjusted until the K-wire was perfectly into the middle of the femoral head. I reamed the proximal cortex, and then placed a lag bolt. I then tightened the set screw to hold it into position. At that time, I removed the nail guide. Perfect circles were then performed at the distal aspect of the nail, followed by an incision and drilling across the nail, and followed by placement of a screw. The screw did fit tightly. I then thoroughly irrigated all areas, and took final x-rays. Final x-rays, AP and lateral of the left femur, confirmed the positioning of the implant, which I was very happy with. These x-rays will be taken back to the office and uploaded onto the system. I then began closure of the tensor using a 0 Vicryl, followed by a 2-0 Vicryl for the subcutaneous layer, followed by brian. At that time, the patient was transferred to the bed and to the PACU in stable condition. There were no complications. Will continue to follow him closely. cc: MD Ihsan Anders MD
[2020-01-27] MEDS: TYLENOL PO SCH ×3 (12:25→22:33)
[2020-01-27] MEDS: NS 1,000 ML IV SCH (12:25)
[2020-01-27] MEDS ORDERED: NS 1,000 ML ONE (12:28)
--- NOTE | 2020-01-27 13:25 | CONSULTATION ---
DATE OF CONSULTATION: 01/27/2020 CONSULTING PHYSICIAN: Dr. Tanner Sheehan. REASON FOR CONSULTATION: Medical management. HISTORY OF PRESENT ILLNESS: Mr. 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 He presented to the emergency department with left hip pain. Imaging found that he had sustained a left intertrochanteric proximal femoral fracture. Dr. Sheehan with Orthopedic Surgery was notified and the patient was admitted. Then today, we were consulted while the patient was in surgery for left hip repair. We are glad to assist with all of the patient's comorbidities. It looks like he has had a recent history of admission in December, just this past month, was discharged on the to [facility]. During his stay, he was encephalopathic. He also had Proteus urinary tract infection and went to [facility] with antibiotics. Also reported history of atrial fibrillation. Currently, he is stable, just assessed him postoperative. He is still sedated from the surgery. PAST MEDICAL HISTORY: 1. Reported history of atrial fibrillation. 2. Right popliteal DVT in 2018 on anticoagulation. 3. TIA. 4. Hyperlipidemia. 5. Hypertension. 6. Diabetes mellitus type 2. 7. Chronic kidney disease stage III. 8. Coronary artery disease. SURGICAL HISTORY: 1. Coronary artery bypass grafting. 2. Left total knee in 2013. 3. Right total knee in 2014. 4. Cholecystectomy in 2015. 5. Day of surgery for left hip closed reduction with long intramedullary nailing of the left hip by Dr. Billy Sheehan. SOCIAL HISTORY: He was living at home alone. His was in rehab. After his December visit, he ended up at [facility] which is where he just came from. There are no reports of tobacco, alcohol or illicit drug use. FAMILY HISTORY: Not reported. ALLERGIES: No known drug allergies. HOME MEDICATIONS: 1. Eliquis 2.5 mg p.o. twice daily. 2. Multivitamin twice daily. 3. Insulin lispro 5 units subcu sliding scale. 4. Lantus. There are 3 different doses as reported, 10, 15, and 20 nightly. 5. Lasix 20 mg p.o. twice daily. 6. Melatonin 5 mg p.o. nightly. 7. Potassium chloride 10 mEq p.o. daily. 8. Seroquel 12.5 mg p.o. daily. 9. Sertraline 100 mg p.o. daily. 10. Lipitor 40 mg p.o. nightly. 11. Aspirin 81 mg p.o. daily. 12. Coreg 6.25 mg p.o. twice daily. 13. Norvasc 5 mg p.o. twice daily. REVIEW OF SYSTEMS: Difficult to obtain. Patient is still sedated from the surgery but arousable. PHYSICAL EXAMINATION: Vital Signs: Temperature 98.5 degrees, heart rate 66, respiratory rate 20, blood pressure 105/50, O2 saturation 100%. General: Mr. Khai Villanueva is an 84-year-old male. He is in no acute distress, but he is still sedate. He was woken up enough for him to say his name, but will go back to sleep. HEENT: Atraumatic, normocephalic. Pupils equal, round, reactive to light. Mucous membranes are dry. Would not stay awake long enough to do extraocular movements. Neck: Trachea midline. Cardiovascular: S1, S2. Regular rate and rhythm. No rubs, gallops, or murmurs. Trace lower extremity edema. +2 dorsalis and radial pulses. Negative JVD or carotid bruits. Pulmonary: Clear to auscultation bilateral breath sounds. No accessory muscle use or work of breathing noted. Abdomen: Soft, nontender, nondistended. Positive bowel sounds x4 but hypoactive. Extremities: Will not move the left lower extremity at this time due to pain, but he is very weak. All extremities do move. He is just very drowsy right now. Neurologic: Oriented to name only. Drowsy from surgery. Followed simple commands. Skin: Warm, dry, intact. Left hip dressing dry and intact. LABORATORY DATA: Labs from yesterday, white blood cells 15,000, hemoglobin 12, hematocrit 37, platelet count 188,000. INR is 1.26. Sodium 140, potassium 4.6, BUN 38, creatinine 1.7, glucose today is 298, calcium 8.8, bilirubin 0.49, AST 21, ALT 31, albumin 3.5. Urinalysis: 200+ glucose, otherwise negative. Micro: Cultures have been ordered. IMAGING: Femur x-ray: Proximal femur fracture on the left hip. Pelvic x-ray: Left intertrochanteric fracture. Chest x-ray: Left base atelectasis. ASSESSMENT AND PLAN: 1. Fall with sustaining of left intertrochanteric hip fracture, now status post repair and pinning by Dr. Sheehan. Currently still somewhat sedated from the surgery, just arrived to his room. 2. Diabetes mellitus type 2 with hyperglycemia. We will do pattern blood glucoses and sliding scale insulin. Once he wakes up enough, he could probably start on a diabetic diet. 3. History of Proteus urinary tract infection last month. He did have leukocytosis yesterday. We will order cultures and another urinalysis. 4. History of right popliteal deep venous thrombosis in 2018, was on Eliquis. May consider resuming that back. 5. History of coronary artery disease. Continue statin, aspirin, Coreg. 6. History of hypertension. Coreg has been resumed, Norvasc as well. 7. Chronic kidney disease stage 3, currently at baseline. Thank you for this consultation. Dictated by TRIXIE Smith for Ihsan Sanches MD cc: TRIXIE Smith MD Pt seen, examined, he is confused/sedated after anesthesia; will continue to monitor blood sugars and cardiac function subsequently , appreciate the consultation. MUMTAZ LYNNE
[2020-01-27 14:58] LABS: URINE SOURCE CLEAN CATCH
[2020-01-27 15:25] LABS: BILIRUBIN URINE NEGATIVE (NEGATIVE); BLOOD URINE TRACE (NEGATIVE); COLOR YELLOW; GLUCOSE URINE 150 mg/dL (NEGATIVE); KETONE URINE NEGATIVE (NEGATIVE); LEUKOCYTES URINE MODERATE (NEGATIVE); NITRITE URINE NEGATIVE (NEGATIVE); PH URINE 5.5; PROTEIN URINE TRACE mg/dL (NEGATIVE); SP GRAVITY URINE 1.022; TURBIDITY URINE CLEAR (CLEAR); UROBILINOGEN URINE NORMAL (NORMAL)
[2020-01-27 15:26] LABS: UR EPITHELIAL CELLS <10 /HPF (<10); URINE BACTERIA NEGATIVE /HPF; URINE RBC <10 /HPF (<10)
[2020-01-27] MEDS: KEFZOL 1 GM/D5W 1 GM/50 ML IVPB IV SCH (18:26)
[2020-01-27] MEDS: OXY IR PO PRN (18:34)
[2020-01-27] MEDS: COLACE PO SCH (20:19)
[2020-01-27] MEDS: MELATONIN PO SCH (20:20)
[2020-01-27] MEDS: FOLTX PO SCH (20:20)
[2020-01-27] MEDS: LIPITOR PO SCH (20:20)
[2020-01-27] MEDS: PERIDEX MT SCH (20:21)
[2020-01-27] MEDS ORDERED: CIPROFLOXACIN HCL 500 MG PO SCH (21:00)
[2020-01-27] MEDS ORDERED: LANTUS INSULIN SUBQ SCH (21:00)
[2020-01-27] MEDS ORDERED: ELIQUIS PO SCH (21:00)
[2020-01-27] MEDS: NORVASC PO SCH (22:33)
[2020-01-27] MEDS: COREG PO SCH (22:33)
[2020-01-28] MEDS: NS 1,000 ML IV SCH ×2 (01:49→16:56)
[2020-01-28] MEDS: KEFZOL 1 GM/D5W 1 GM/50 ML IVPB IV SCH ×3 (01:50→16:56)
--- NOTE | 2020-01-28 04:09 | PROGRESS NOTE ---
DATE: 01/27/2020 ADDENDUM Patient was admitted for a hip fracture. He had a displaced fracture of his left hip, a comminuted fracture it looks like below the femoral head. Initially we were consulted, but then it was changed to an admission, but in any case, the patient has been seen postop. He seems very sedated, is still having issues related to his anesthesia, but plan will be to admit. We need to resume his anticoagulation when we can. He has a history of DVT. Currently, he is on nothing. We will resume his Eliquis tomorrow if okay by Surgery and follow closely. This is a [id number] encounter with Mary Delacruz. cc: Ihsan Sanches MD MTDD
[2020-01-28] MEDS: TYLENOL PO SCH ×2 (06:21→21:25)
[2020-01-28] MEDS: HUMULIN R SUBQ SCH ×4 (06:42→21:25)
--- NOTE | 2020-01-28 06:57 | EKG Report ---
Test Performed on : 01/28/2020 06:43:31 AM Test Reason : afib hx Blood Pressure : / mmHG Vent. Rate : 068 BPM Atrial Rate : 068 BPM P-R Int : 182 ms QRS Dur : 152 ms QT Int : 456 ms P-R-T Axes : 032 003 030 degrees QTc Int : 484 ms Normal sinus rhythm. Right bundle branch block Abnormal ECG When compared with ECG of 16-DEC-2019 11:21, (Unconfirmed) No significant change was found Confirmed by Nubia BETH, Colin Cherry ([id number]) on 01/28/2020 4:22:06 PM
[2020-01-28 07:14] LABS: INR 1.35; PROTIME 16.9 Seconds (11.0-16.0)
[2020-01-28 07:15] LABS: PTT 31.8 Seconds (22.3-41.8)
[2020-01-28 07:23] LABS: BASO# 0.01 X1000 (0.0-0.2); BASO% 0.1 % (0.0-0.8); EOS# 0.39 X1000 (0.0-0.7); EOS% 2.5 % (0.0-10.0); HEMATOCRIT 28.9 % (42.0-52.0); IMM GRAN# 0.04 X1000 (0.0-0.04); IMM GRAN% 0.3 % (0.0-0.5); LYMPH# 1.35 X1000 (1.2-3.4); LYMPH% 8.7 % (20.5-51.1); MCH 28.7 PG (27-31); MCHC 31.1 g/dL (33-37); MONO% 7.1 % (1.7-9.3); NEUT% 81.3 % (42.2-75.2); PLT 165 X1000 (130-400); RBC 3.14 XMIL (4.7-6.1); RDW 14.1 % (11.5-14.5); WBC 15.59 X1000 (4.8-10.8)
--- NOTE | 2020-01-28 08:09 | ORTHOPAEDICS PROGRESS NOTE ---
DATE: 01/28/2020 SUBJECTIVE: The patient is a pleasant, 84-year-old male who is 1 day status post left intramedullary nail for a left intertrochanteric femur fracture per Dr. Sheehan. PHYSICAL EXAMINATION: The patient is sleeping. It appears left lower extremity dressing is intact. Calf is soft. His hemoglobin is 9.0 and hematocrit is 28.9. IMPRESSION: Postoperative day #1 status post intramedullary nailing of the left femur. PLAN: At this point, we will begin mobilization as tolerated with physical therapy. We will change his dressing tomorrow. cc: MD Ihsan Barragan MD
[2020-01-28 08:33] LABS: ALB/GLOB RATIO 1.5; ALBUMIN 3.1 g/dL (3.5-5.0); CALCIUM 7.7 mg/dL (8.8-10.2); CREATININE 2.4 mg/dL (0.7-1.2); MAGNESIUM 2.3 mg/dL (1.5-2.7); POTASSIUM 5.2 mmol/L (3.5-5.1); TOTAL BILIRUBIN 0.36 mg/dL (0.20-1.00); TOTAL PROTEIN 5.1 g/dL (6.3-8.3)
[2020-01-28] MEDS: FERROUS SULFATE PO SCH (08:45)
[2020-01-28] MEDS: ELIQUIS PO SCH ×2 (08:46→21:24)
[2020-01-28] MEDS: ZOLOFT PO SCH (08:46)
[2020-01-28] MEDS: NORVASC PO SCH ×3 (08:46→21:43)
[2020-01-28] MEDS: COREG PO SCH ×2 (08:46→21:25)
[2020-01-28] MEDS: ASPIRIN PO SCH (08:46)
[2020-01-28] MEDS: FOLTX PO SCH ×2 (08:46→21:25)
[2020-01-28] MEDS ORDERED: KLOR-CON PO SCH (09:00)
[2020-01-28] MEDS: SEROQUEL PO SCH (13:18)
[2020-01-28] MEDS: OXY IR PO PRN ×2 (13:23→21:23)
--- NOTE | 2020-01-28 16:55 | PROGRESS NOTE ---
DATE: 01/28/2020 SUBJECTIVE: Patient has no major complaints. OBJECTIVE: Vitals: Blood pressure 123/46, heart rate 64, respiratory rate 18, temperature 97.6 degrees. Cardiovascular: Regular rate and rhythm. Pulmonary: Bilateral breath sounds, clear to auscultation. GI: Soft, nontender, nondistended. Bowel sounds are positive. LABORATORY DATA: White count 15, hemoglobin and hematocrit 9 and 28, platelets 165,000. Potassium 5.2, BUN and creatinine 53 and 2.4. Sugar 263. PROBLEM LIST: 1. Left hip fracture. Seems to be doing okay status post ORIF. Continue orthopedic care, DVT prophylaxis. 2. Type 2 diabetes. Not well controlled, but I do not think he has been on his regular medications because he has been n.p.o. for surgery. He is on a tiny dose of Lantus. Now, he is supposed to be on a much larger dose, but I do not know. He has 3 different orders for Lantus, all at night 10, 15 and 20. I am going to bump it up to 20, and we need to somehow validate which of his insulins is the accurate insulin dosing. He is from a alf, I believe. In any case, seems to be doing okay from that standpoint. 3. I believe he has a history of atrial fibrillation, and we will continue anticoagulation. 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 We will continue his cardiac medications. 4. Acute kidney injury. I am not quite sure what that is related to. He is a little bit hyperkalemic. He is not on anything that is overtly nephrotoxic. He is supposed to be on Lasix; that was not continued, and that is it. So he is on hydration. We will check urine lytes. We may need to keep his Brown in a little longer in order to keep an eye on his ins and outs, but we will monitor that. 5. Disposition. He will return back to alf. Obviously, he will need COVID testing which has been, I believe, completed already. cc: Ihsan Sanches MD
[2020-01-28] MEDS: LOKELMA POWDER PACKET PO SCH (16:58)
[2020-01-28] MEDS: PERIDEX MT SCH ×2 (18:17→21:24)
[2020-01-28] MEDS: LANTUS INSULIN SUBQ SCH (19:28)
[2020-01-28] MEDS: LIPITOR PO SCH (21:23)
[2020-01-28] MEDS: MELATONIN PO SCH (21:24)
[2020-01-28] MEDS: COLACE PO SCH (21:25)
[2020-01-28 22:13] LABS: UR CREAT RANDOM 136.8 mg/dL (14-26)
[2020-01-29] MEDS: NS 1,000 ML IV SCH ×2 (04:31→11:57)
[2020-01-29] MEDS: TYLENOL PO SCH ×3 (04:32→21:26)
[2020-01-29] MEDS: HUMULIN R SUBQ SCH ×4 (06:30→21:26)
[2020-01-29 07:08] LABS: BASO# 0.02 X1000 (0.0-0.2); BASO% 0.2 % (0.0-0.8); EOS# 0.43 X1000 (0.0-0.7); EOS% 3.3 % (0.0-10.0); HEMOGLOBIN 7.7 g/dL (14.0-18.0); IMM GRAN# 0.04 X1000 (0.0-0.04); IMM GRAN% 0.3 % (0.0-0.5); LYMPH# 1.14 X1000 (1.2-3.4); LYMPH% 8.8 % (20.5-51.1); MCH 28.3 PG (27-31); MCHC 30.8 g/dL (33-37); MCV 91.9 FL (81-99); MONO# 0.73 X1000 (0.11-0.59); MONO% 5.7 % (1.7-9.3); MPV 12.3 FL (7.4-10.4); NEUT# 10.55 X1000 (1.4-6.5); NEUT% 81.7 % (42.2-75.2); PLT 138 X1000 (130-400); RBC 2.72 XMIL (4.7-6.1); RDW 13.7 % (11.5-14.5); WBC 12.91 X1000 (4.8-10.8)
[2020-01-29 07:26] LABS: ALBUMIN 2.6 g/dL (3.5-5.0); CALCIUM 7.7 mg/dL (8.8-10.2); CREATININE 2.1 mg/dL (0.7-1.2); MAGNESIUM 2.4 mg/dL (1.5-2.7); TOTAL BILIRUBIN 0.41 mg/dL (0.20-1.00); TOTAL PROTEIN 5.3 g/dL (6.3-8.3)
[2020-01-29] MEDS: PERIDEX MT SCH ×2 (09:14→21:26)
[2020-01-29] MEDS: LANTUS INSULIN SUBQ SCH (09:14)
[2020-01-29] MEDS: ASPIRIN PO SCH (09:15)
[2020-01-29] MEDS: ZOLOFT PO SCH (09:15)
[2020-01-29] MEDS: FOLTX PO SCH ×2 (09:15→21:26)
[2020-01-29] MEDS: FERROUS SULFATE PO SCH (09:15)
[2020-01-29] MEDS: SEROQUEL PO SCH (09:15)
[2020-01-29] MEDS: ELIQUIS PO SCH ×2 (09:15→21:26)
[2020-01-29] MEDS: NORVASC PO SCH ×2 (09:15→21:25)
[2020-01-29] MEDS: COREG PO SCH ×2 (09:16→21:26)
--- NOTE | 2020-01-29 11:28 | ORTHOPAEDICS PROGRESS NOTE ---
DATE: 01/29/2020 SUBJECTIVE DATA: Mr. Villanueva is lying in bed. He is pretty drowsy this morning, but I was able to wake him. He was a little bit confused when I woke him. OBJECTIVE DATA: On left lower extremity exam, his incision looks good. There was quite a bit of serosanguineous drainage on the dressing, but underneath, it was nice and dry and intact. There is no surrounding erythema. He is not really following commands, but he was able to move the toes. He does seem to have good sensation to the foot. He has a 2+ pedal pulse. ASSESSMENT: Left hip fracture, status post trochanteric femoral nailing. PLAN: The plan is for Mr. Villanueva to go to a rehab facility. He can weight bear as tolerated on this left lower extremity. They will get the brian out in about 12 to 14 days. We will want to have him follow up with Dr. Zimmer or Dr. Bernal in the office in about 12 to 14 days. He is on 2.5 mg of Eliquis twice a day for DVT prophylaxis. Will continue that for 30 days. If there are any questions or concerns, please give us a call. Dictated by TRIXIE Vega for Perry Zimmer MD cc: TRIXIE Vega MD Alexis R. Penot, MD
--- NOTE | 2020-01-29 16:23 | PROGRESS NOTE ---
DATE: 01/29/2020 SUBJECTIVE: He has no major complaints. Some discomfort at the level of the left hip, mostly with movement. He received a dose of Lantus today, 20 units. His creatinine is getting better, but likely is around baseline, which seems to be between 1.5 and 2.1. He seems to be having a little bit of pedal edema, so I will go ahead and stop the IV fluids and I will start this patient back on his Lasix. He is tolerating his diet and actually he is eating well. No bowel movement reported, so I will go ahead and put him on Dulcolax twice a day on top of the docusate that he has been recommended to take at night. He pulled out his Brown catheter and he has been bleeding a little bit. Actually, I saw a blood clot when I checked on him. It was small but I will keep an eye on that. He is not complaining of pain. PHYSICAL EXAMINATION: Vital Signs: Temperature 98.8 degrees, pulse 60, respiratory rate 20, blood pressure 114/50, oxygen saturation 97% on room air. HEENT: Head normocephalic. No trauma. PERRLA. Neck: Supple. No JVD. No masses. Central trachea. Chest: Clear to auscultation. No wheezing. Some crepitus at the bases. Abdomen: Soft. Extremities: Left hip has a dressing and also his left thigh with no signs of active bleeding. It looks like it is more swollen compared with the right lower extremity. He is not complaining of significant pain. Neurological: Patient is awake, alert. He is oriented x1. He knows he is in the hospital but he does not know the name of this one. He is following commands. LABORATORY: WBC 12.9, hemoglobin 9.7, hematocrit 25, platelets 138,000. Sodium 139, potassium 5, chloride 105, bicarbonate 23, BUN 60, creatinine 2.1, glucose 319, calcium 7.7, albumin 2.6. ASSESSMENT AND PLAN: 1. Left intertrochanteric hip fracture, status post closed reduction with long intramedullary nailing of the left hip, postoperative day #2. We will continue with pain management. We will continue with anticoagulation. Physical therapy on board. 2. Type 2 diabetes. It is not well controlled. I will ask for a hemoglobin A1c. I will continue with Lantus 20 for now and sliding scale insulin. His first dose of Lantus was today. 3. History of atrial fibrillation, on chronic anticoagulation. Continue with same management. 4. Acute on chronic kidney disease. Seems to be coming back down to baseline. I will continue his home medication. He seems to be having some lower extremity edema. I will stop the fluids at this moment. He is eating well. 5. Hyperkalemia, stable. 6. Mild hematuria. This is traumatic. This patient pulled out his Brown catheter, but it is getting better. 7. Constipation. I have placed this patient on Dulcolax suppository and he is already on docusate at night. 8. Disposition. The patient seems to be stable. I have placed this patient back on his home medications. Once he is more stable, I will go ahead and discharge this patient back to [facility]. cc: MD Ihsan Moreno MD
[2020-01-29] MEDS: DULCOLAX PR SCH ×2 (16:58→23:10)
[2020-01-29] MEDS: LOKELMA POWDER PACKET PO SCH (16:59)
[2020-01-29] MEDS: LIPITOR PO SCH (21:25)
[2020-01-29] MEDS: MELATONIN PO SCH (21:25)
[2020-01-29] MEDS: COLACE PO SCH (21:26)
[2020-01-29] MEDS: LASIX PO SCH (23:10)
[2020-01-30] MEDS: HUMULIN R SUBQ SCH ×3 (00:36→10:53)
[2020-01-30] MEDS: TYLENOL PO SCH ×2 (04:08→11:35)
[2020-01-30 06:47] LABS: BASO# 0.02 X1000 (0.0-0.2); BASO% 0.2 % (0.0-0.8); EOS# 0.45 X1000 (0.0-0.7); EOS% 3.6 % (0.0-10.0); HEMOGLOBIN 7.9 g/dL (14.0-18.0); IMM GRAN# 0.05 X1000 (0.0-0.04); IMM GRAN% 0.4 % (0.0-0.5); LYMPH# 1.48 X1000 (1.2-3.4); LYMPH% 11.7 % (20.5-51.1); MCH 28.3 PG (27-31); MCHC 31.6 g/dL (33-37); MCV 89.6 FL (81-99); MONO# 0.85 X1000 (0.11-0.59); MONO% 6.7 % (1.7-9.3); MPV 11.8 FL (7.4-10.4); NEUT# 9.82 X1000 (1.4-6.5); NEUT% 77.4 % (42.2-75.2); PLT 160 X1000 (130-400); RBC 2.79 XMIL (4.7-6.1); RDW 13.5 % (11.5-14.5); WBC 12.67 X1000 (4.8-10.8)
[2020-01-30 07:08] LABS: HEMOGLOBIN A1C 9.9 % (4.8-6.0)
--- NOTE | 2020-01-30 07:14 | Diag Imaging Result Doc PS360 ---
EXAM: CHEST-PORTABLE 01/30/2020 HISTORY: dyspnea TECHNIQUE: AP portable upright at 0559 COMMENT: There are atelectatic changes present in the left base. Otherwise the lungs are clear. There are sternotomy wires and anterior mediastinal surgical clips. IMPRESSION: Subsegmental atelectasis left lower lobe. Electronically signed by Reyes Frost 01/30/2020 7:11 AM
[2020-01-30 07:17] LABS: ALBUMIN 2.7 g/dL (3.5-5.0); CALCIUM 8.2 mg/dL (8.8-10.2); CREATININE 1.6 mg/dL (0.7-1.2); MAGNESIUM 2.5 mg/dL (1.5-2.7); POTASSIUM 4.1 mmol/L (3.5-5.1); TOTAL BILIRUBIN 0.82 mg/dL (0.20-1.00); TOTAL PROTEIN 5.5 g/dL (6.3-8.3)
[2020-01-30] MEDS: LASIX PO SCH (08:35)
[2020-01-30] MEDS: NORVASC PO SCH (08:35)
[2020-01-30] MEDS: ELIQUIS PO SCH (08:35)
[2020-01-30] MEDS: ASPIRIN PO SCH (08:35)
[2020-01-30] MEDS: ZOLOFT PO SCH (08:35)
[2020-01-30] MEDS: FOLTX PO SCH (08:35)
[2020-01-30] MEDS: SEROQUEL PO SCH (08:35)
[2020-01-30] MEDS: DULCOLAX PR SCH (08:36)
[2020-01-30] MEDS: COREG PO SCH (08:36)
[2020-01-30] MEDS: FERROUS SULFATE PO SCH (08:36)
[2020-01-30] MEDS: PERIDEX MT SCH (08:42)
[2020-01-30] MEDS: LANTUS INSULIN SUBQ SCH (08:42)
--- NOTE | 2020-01-30 12:42 | DISCHARGE SUMMARY ---
ADMISSION DATE: 01/26/2020 DISCHARGE DATE: PRIMARY CARE PROVIDER: Denise Montesinos MD. CONSULTATIONS: Tanner Sheehan MD. PERTINENT PROCEDURES: 1. Hip/pelvis x-ray: Left intertrochanteric fracture on the left. 2. Closed reduction with long intramedullary nailing of the left hip performed by Dr. Sheehan. DISCHARGE DIAGNOSES: 1. Left hip fracture status post trochanteric femoral nailing. The patient will be discharged to [facility]. 2. Type 2 diabetes not well controlled. Hemoglobin A1c is 9.9. The patient will be discharged on Lantus and Humalog. 3. History of atrial fibrillation on anticoagulation, rate-controlled. 4. [id number] kidney disease. The patient is back down to baseline. 5. Hyperkalemia, stable. 6. Mild hematuria that is traumatic from Brown catheter placement, improved. 7. Constipation. The patient has been placed on a bowel regimen. HOSPITAL COURSE: Briefly, Mr. Villanueva is an 84-year-old gentleman who came from [facility], who had a fall on the night of the or early in the morning on the , presented to the ED with left hip pain. Imaging found he had sustained a left intertrochanteric proximal femoral fracture. Dr. Sheehan with Orthopedics was notified. The patient underwent a closed trochanteric femoral nailing on the left. He has worked with Physical Therapy and will be discharged back to [facility] and will be weightbearing as tolerated to his left lower extremity. [place] come out in about 12 to 14 days. Follow up with Dr. Zimmer or Dr. Bernal in the office in 12 to 14 days as well. Will continue on Eliquis for DVT prophylaxis for 30 days. VITAL SIGNS AT THE TIME OF DISCHARGE: Temperature is 98.5 degrees, heart rate 61, respirations 22, blood pressure 123/47, O2 is 97% on room air. DISCHARGE DIET: Diabetic. DISCHARGE MEDICATIONS: 1. Eliquis 2.5 mg p.o. b.i.d. total of 30 days. 2. Folbee tablet 1 each p.o. b.i.d. 3. Humalog 5 units subcutaneously as directed. 4. Lasix 20 mg p.o. b.i.d. 5. Melatonin 5 mg p.o. at bedtime. 6. Potassium chloride 10 mEq p.o. daily. 7. Colace 200 mg p.o. at bedtime. 8. Lipitor 40 mg p.o. at bedtime. 9. OxyIR 5 mg p.o. q.3 hours p.r.n. x20 tablets. 10.Aspirin 81 mg p.o. daily. 11.Coreg 6.25 mg p.o. b.i.d. 12.Bisacodyl 10 mg p.o. b.i.d. p.r.n. 13.Ferrous sulfate 325 mg p.o. with breakfast. 14.Lantus 20 units subcutaneously daily. 15.Norvasc 5 mg p.o. b.i.d. 16.Seroquel 12.5 mg p.o. daily. 17.Zoloft 100 mg p.o. daily. FOLLOWUP: Mr. Villanueva is being discharged back to [facility]. He is to be weightbearing as tolerated to his left lower extremity. His brian can come out in 12 to 14 days. Follow up with Dr. Zimmer or Dr. Bernal in the office in 12 to 14 days. He will be on Eliquis 2.5 mg b.i.d. for DVT prophylaxis for 30 days. He can return to the ED or call 911 for any worsening of symptoms. Dictated by TRIXIE Curran for Jay Cortés MD cc: MD Jay Mcdaniel MD Alexis R. Penot, MD
[2020-01-30 12:46] VITALS: BP 113/50
== END 2020-01-30 14:01 | DRG 956 ==
LOC: SUPCPDRO → ED 08:32 → 4N 12:21 → SUATTDRO 12:21
PROVIDERS: ADMIT Internal Medicine; ATTEND Internal Medicine